=== PATIENT | female | born 1945 | race Caucasian/White ===

== ENCOUNTER 2022-02-24 09:41 | Observation (INO) ==
--- NOTE | 2022-01-29 08:45 | PAT Medication Instructions ---
Medication Instructions Date of Service January 29, 2022 Home Medications aspirin 325 mg tablet 325 mg PO QAM atenolol 50 mg tablet 50 mg PO QAM atorvastatin 20 mg tablet 20 mg PO QAM cholecalciferol (vitamin D3) 10 mcg (400 unit) capsule 1,000 unit PO QAM febuxostat 40 mg tablet (Uloric) 40 mg PO QAM levothyroxine 25 mcg tablet (Levoxyl) 37.5 mcg PO QAM lisinopril 30 mg tablet 30 mg PO QAM lorazepam 0.5 mg tablet 0.5 mg PO HS multivitamin 1 tab PO QAM albuterol sulfate 90 mcg/actuation aerosol inhaler 2 puff inhalation 6XD PRN cetirizine 10 mg capsule 10 mg PO DAILY PRN diphenhydramine HCl 25 mg capsule 25 mg PO HS ASK your prescriber and surgeon aspirin 325 mg tablet 325 mg PO QAM DO NOT take the morning of surgery cholecalciferol (vitamin D3) 10 mcg (400 unit) capsule 1,000 unit PO QAM lisinopril 30 mg tablet 30 mg PO QAM multivitamin 1 tab PO QAM cetirizine 10 mg capsule 10 mg PO DAILY PRN febuxostat 40 mg tablet (Uloric) 40 mg PO QAM Take morning of surgery With a small sip of water, OTHERWISE NOTHING TO EAT OR DRINK AFTER MIDNIGHT: atenolol 50 mg tablet 50 mg PO QAM atorvastatin 20 mg tablet 20 mg PO QAM levothyroxine 25 mcg tablet (Levoxyl) 37.5 mcg PO QAM albuterol sulfate 90 mcg/actuation aerosol inhaler 2 puff inhalation 6XD PRN(use if needed; please bring with you to hospital day of surgery if possible) Take evening before surgery lorazepam 0.5 mg tablet 0.5 mg PO HS albuterol sulfate 90 mcg/actuation aerosol inhaler 2 puff inhalation 6XD PRN(if needed) diphenhydramine HCl 25 mg capsule 25 mg PO HS Other Notes If you have any questions please call us at [phone] or [phone] or [phone] or [phone]
--- NOTE | 2022-02-03 12:05 | Anesthesiology Consultation ---
Date of Service February 03, 2022 Assessment & Plan (1) Encounter for pre-operative examination: - right arm restriction. - Outpatient joint assessment: Discussed with Dr. Arteaga. Patient is currently scheduled for inpatient pathway. If re-evaluated pending system levels during current pandemic/surgeon requests outpatient pathway, patient is acceptable candidate for outpatient joint program from anesthesia standpoint pending surgeon's office assessment of pt motivation/support/completion of same day joint program preop requirements. - COVID screening: Per assessment on 02/03/2022: Travel screen-[employer] 01/21/22 no known COVID-19 positive contacts or current COVID-19 related symptoms in past 2 weeks. Pt vaccinated. To surgeon's discretion if pt needs pre-op COVID testing. Chart Review Chart Review: Acceptable Risk for Surgery and Patient seen in Pre Admission Testing Teaching & Discussion Pre-Anesthesia Teaching/Discussion Notes: Instructed NPO after midnight before surgery, except medications with 15 cc of water. Medication instructions provided according to the PAT guidelines. History Surgery Operation Date: 02/24/22 07:00 Proposed Procedures p Right Lateral Total Hip Arthroplasty - Vitaly Osorio, Height/Weight Height: 5 ft 3 in Weight: 93.1 kg Allergies Allergy/AdvReac Type Severity Reaction Status Date / Time amoxicillin [From Augmentin] Allergy Intermediate Rash Verified 12/13/21 12:20 clavulanic acid Allergy Intermediate Rash Verified 12/13/21 12:20 [From Augmentin] levofloxacin [From Levaquin] Allergy Intermediate GI upset, Verified 01/30/22 12:01 hives allopurinol AdvReac Intermediate Kidney Verified 01/30/22 12:01 injury pseudoephedrine AdvReac Intermediate Heart Verified 01/30/22 12:03 racing Medications Home Medications Medication Instructions Recorded Confirmed Last Taken aspirin 325 mg tablet 325 mg PO QAM 10/28/21 12/13/21 Unknown atenolol 50 mg tablet 50 mg PO QAM 10/28/21 12/13/21 Unknown atorvastatin 20 mg tablet 20 mg PO QAM 10/28/21 12/13/21 Unknown cholecalciferol (vitamin D3) 10 1,000 unit PO QAM 10/28/21 12/13/21 Unknown mcg (400 unit) capsule febuxostat 40 mg tablet (Uloric) 40 mg PO QAM 10/28/21 12/13/21 Unknown levothyroxine 25 mcg tablet 37.5 mcg PO QAM 10/28/21 12/13/21 Unknown (Levoxyl) lisinopril 30 mg tablet 30 mg PO QAM 10/28/21 12/13/21 Unknown lorazepam 0.5 mg tablet 0.5 mg PO HS 10/28/21 12/13/21 Unknown multivitamin 1 tab PO QAM 10/28/21 12/13/21 Unknown albuterol sulfate 90 mcg/actuation 2 puff inhalation 6XD PRN Wheezing 12/13/21 12/13/21 Unknown aerosol inhaler cetirizine 10 mg capsule 10 mg PO DAILY PRN Allergy Symptoms 12/13/21 12/13/21 Unknown diphenhydramine HCl 25 mg capsule 25 mg PO HS 12/13/21 12/13/21 Unknown Past Medical History Medical History (Updated 02/03/22 @ 12:56 by Jessica Curtis PA-C) Anxiety Breast cancer, right R arm restriction Chronic back pain LBP GERD (gastroesophageal reflux disease) controlled, stable per pt; triggered by eating late Hyperlipidemia Hypertension controlled, stable per pt; white coat hypertension Hypothyroidism Limb alert care status Right arm Obesity Prediabetes monitoring by [facility] PCP, A1c 6.0% 08/2021 Seasonal allergies TIA (transient ischemic attack) suspected per pt -episode of memory loss, placed on ASA 325mg, no issues since Patient denies h/o seizures, heart attack, heart failure, blood clots or blood transfusions. Exercise / Class Metabolic Activity II 4-5 Yardwork/Stairs/Walk up hill (denies CP or SOB with 1 FOS, occ ambulates with walking stick outside d/t limping) Past Family History Family History Daughter Family history of reaction to anesthesia "AWARE" DURING ANESTHESIA Grandmother (Maternal) Family history of diabetes mellitus Mother Family history of diabetes mellitus Past Surgical History Surgical History (Updated 02/03/22 @ 12:20 by Jessica Curtis PA-C) History of cholecystectomy History of colonoscopy History of dilation and curettage History of esophagogastroduodenoscopy (EGD) Hx of lumpectomy RIGHT/CHEMOTHERAPY/RADIATION-right arm restriction Past Anesthesia History No Hx of Anesthesia Complications and Other (daughter slow to wake, hypertensive, denies re-intubation or extended stay, states was discharged home same day) History of PONV No Hx of PONV and No Hx of Motion Sickness Social History Smoking Status: Never smoker Do You Dip or Chew Tobacco: No Hx Alcohol Use: Yes Alcohol type: wine alcohol intake frequency: other (a few times per year) Hx Substance Use: No Review of Systems Mild snoring, denies witnessed apneas. Patient denies chest pain, shortness of breath, dyspnea on exertion, fever, chills, cough, wheezing, or palpitations. Physical Exam Vital Signs Vitals BP 149/76 P 73 TEMP 97.8 SP02 97% on RA RESP 18 Physical Full cervical extension range of motion without pain TMD 3.5 finger breadths Mallampati Score 2 Dentition: intact, Lungs: normal respiratory effort. Clear throughout to auscultation, no adventitious breath sounds Cardiac: regular rate and rhythm, no murmurs noted; posterior tibialis pulses 2+ equal Carotid arteries: negative bruit bilat Lab Results Anesthesia Preop Results Results Anesthesia Widget: WBC 7.11 K/ul (4.8-10.8) 02/03/22 Hgb 14.1 g/dl (12.0-16.0) 02/03/22 Hct 42.5 % (34.1-44.9) 02/03/22 Plt 214 K/uL (130-400) 02/03/22 Na 137 mmol/L (136-145) 02/03/22 K 4.4 mmol/L (3.5-5.1) 02/03/22 Cl 103 mmol/L (98-107) 02/03/22 CO2 28 mmol/L (21-32) 02/03/22 BUN 17 mg/dl (6-23) 02/03/22 Creat 0.99 mg/dl (0.6-1.2) 02/03/22 Glucose Level 135 mg/dl (70-99(Fasting)) H 02/03/22 PT 11.0 Seconds (9.0-12.0) 02/03/22 PTT 27.8 Seconds (21.0-31.0) 02/03/22 INR 1.0 (0.9-1.1) 02/03/22 Blood Type A Positive 02/03/22 Antibody Screen NEGATIVE 02/03/22 Testing Electrocardiogram Date: 02/03/22 NSR, rate 75 bpm Echocardiogram Date: 12/16/17 EF 55-59% No LV segmental wall motion abnormalities Mild mitral regurgitation Mild tricuspid regurgitation cLVH Other Testing Chest CT 11/25/21 1. Mild cardiomegaly without acute intrathoracic abnormality. 2. No pulmonary emboli. 3. No pleural effusion or airspace consolidation typical for pneumonia. 4. 3 mm solid nodule of the left lung apex.
[~2022-02-24 09:41] MED LIST: ACETAMINOPHEN 500 MG TAB PO SCH; BUPIVACAINE 0.5 % 5 MG/1 ML PF 10ML VIAL ONE; FAMOTIDINE 20 MG TAB PO SCH; GABAPENTIN 300 MG CAP PO SCH; LR 500ML BOLUS, THEN 15ML/HR IV SCH; LR 60ML/HR IV SCH; ORTHO JOINT MIX INFIL SCH; TRANEXAMIC ACID 1,000 MG **IV Intra-op IV SCH; TRANEXAMIC ACID 1,000 MG **IV Pre-op IV SCH; ceFAZolin 2000MG 2,000 MG/15 ML SYR IV SCH; dexAMETHasone 4 MG TAB PO SCH
--- NOTE | 2022-02-24 10:23 | History & Physical Bridge Note ---
Date of Service February 24, 2022 History & Physical Bridge Note I have examined the patient, reviewed the History & Physical and in the interval since the performance of the History & Physical I have noted the following changes of clinical significance: no changes noted
[2022-02-24] MEDS ORDERED: ORTHO JOINT ANESTHETIC ONE (10:53)
[2022-02-24] MEDS ORDERED: MIDAZOLAM HCL 1 MG/ML 2ML VIAL ONE (10:56)
[2022-02-24] MEDS ORDERED: fentaNYL citrate 100 MCG/2 ML VIAL ONE (10:56)
[2022-02-24] MEDS ORDERED: fentaNYL citrate 100 MCG/2 ML VIAL IV PRN (11:14)
[2022-02-24] MEDS ORDERED: ePHEDrine sulfate 50 MG/ML AMP IV PRN (11:14)
[2022-02-24] MEDS ORDERED: ONDANSETRON INJ 2 MG/ML 2 ML VIAL IV PRN ×2 (11:14→16:00)
[2022-02-24] MEDS ORDERED: ATROPINE SULFATE 0.1 MG/ML 10ML SYR IV PRN (11:14)
[2022-02-24] MEDS ORDERED: ONDANSETRON INJ 2 MG/ML 2 ML VIAL ONE (12:38)
[2022-02-24] MEDS ORDERED: PROPOFOL IV EMULSION 10 MG/ML 20 ML VIAL IV ONE (12:38)
[2022-02-24] MEDS ORDERED: ePHEDrine sulfate 50 MG/ML SYR ONE (12:38)
[2022-02-24] MEDS ORDERED: LIDOCAINE 2% MPF LOCAL 5 ML VIAL INFIL ONE (12:38)
--- NOTE | 2022-02-24 13:12 | XRay Report ---
XR hip RT 1V CLINICAL HISTORY: RT AP HIP TO BE DONE IN OR 3. Right hip prosthesis. COMPARISON STUDY: None. FINDINGS: 2 intraoperative AP images of the right hip were submitted for review. There is a right tot al hip arthroplasty. The hardware appears intact. No fracture or dislocation. No concerning radiopaqu e foreign bodies identified. IMPRESSION: Intraoperative study for a right total hip arthroplasty. No fracture or dislocation. ACT 112: Negative or not required by law. Electronically signed by: Sarthak Barr M.D. 02/24/2022 1:11 PM
--- NOTE | 2022-02-24 13:43 | Operative Report ---
PG Post Operative Report Pre & Post Diagnosis Operation Date: 02/24/22 12:30 Pre-Op Diagnosis: Degenerative joint disease right hip Post-Op Diagnosis: Degenerative joint disease right hip I identified the patient and participated in the time-out.: Yes Procedure Operation Date: 02/24/22 12:30 Actual Procedures p Right Lateral Total Hip Arthroplasty(Right) - Vitaly Osorio DO Surgeon Vitaly Osorio DO Rn Complex Care Vitaly Shore PA-C Estimated Blood Loss 250 Findings Consistent with Post-Op Diagnosis Specimens Right femoral head Description of Procedure Implants used I used a ZimmerBiomet total hip arthroplasty system with a size 2 standard offset Avenir Complete stem, a 46 mm G7 cup with a 25mm screw, an E1 polyeth ylene liner, a 32 mm ceramic head with a +3.5 neck. Arpit arrived at the hospital for the above procedure. She was seen in the preoperative holding area and the operative extremity was identified and signed. She was given a spinal anesthetic, a preoperative antibiotic, and TXA. She was then taken back to the operating room and laid on the table in the supine position. She was given basic sedation. She was then put in the right lateral decubitus position. A timeout was done and the patient and the operative extremity was properly identified. A lateral approach was used. Dissection was taken down through the fat layer to the fascia. The fascia was then incised. The anterior third of the abductors were then tenotomized off the greater trochanter. The capsule was then excised. The femoral head was then dislocated. The femoral neck was then resected. The femoral head was removed. The acetabulum was then exposed. Time was spent doing a circumferential or labral release. Sequential reaming up to a size 45 reamer was done. A final 46 mm Biomet G7 shell was then impacted into place. A single 25 mm screw was placed. The polyethylene liner for a 32 mm head was then impacted in the place. The surrounding soft tissues were then injected with 60 cc of an orthopedic pain control cocktail. The proximal femur was then exposed. Sequential broaching up to a size 2 broach was done. A standard neck and a +3.5 head was trialed. The hip was reduced. A flatplate image was taken. I was happy with the overall size of the implants and alignment of the hips. The hip was then dislocated. The trials were removed. The final size 2 standard offset Hugh Avenir complete stem was then impacted into place. A 32 mm head with a +3.5 neck was then impacted on the femoral stem. The hip was reduced. The hip was brought through a full range of motion and felt to be stable. The abductors were then tenodesed back to the greater trochanter with transosseous FiberWire sutures. The fascia was repaired with #1 Vicryl. Skin was closed with 2-0 Vicryl and garfield. She was then placed in a Silverlon dressing. She was then transferred to a hospital bed and taken to the postanesthesia care unit in stable condition. She tolerated the procedure well. Vitaly Shore PA-C, was present for the entire procedure. He was critical for patient positioning, prepping, draping, retraction exposure, wound closure and application of sterile dressing. I attest to the content of the Intraoperative Record and any orders documented therein. Any exceptions are noted below.
--- NOTE | 2022-02-24 14:24 | XRay Report ---
AP PELVIS, CROSSTABLE LATERAL RIGHT HIP History: Right total hip arthroplasty. Degenerative arthritis. Postop. FINDINGS: The patient is status post a right total hip arthroplasty. The hardware is intact. No fract ure or dislocation. Skin garfield are in place. IMPRESSION: Right total hip arthroplasty. No evidence for hardware complication ACT 112: Negative or not required by law. Electronically signed by: Sarthak Barr M.D. 02/24/2022 2:22 PM
--- NOTE | 2022-02-24 14:56 | Anesthesiology Progress Note ---
Date of Service February 24, 2022 Anesthesia Post Procedure Vital Signs Vital Signs: Temp Pulse Pulse Resp BP Pulse Ox O2 Del Method 02/24/22 14:45 36.4 C L 65 13 137/62 97 Room Air 02/24/22 14:35 74 14 124/66 98 Room Air 02/24/22 14:25 75 16 125/66 92 Room Air 02/24/22 14:15 72 15 126/56 L 97 Room Air 02/24/22 14:05 77 12 115/67 96 Room Air 02/24/22 13:55 36.4 C L 78 22 116/64 98 Room Air 02/24/22 10:27 36.5 C 73 20 168/81 H 97 Room Air Transfer of Care Handoff Completed per policy Notes Mental Status: alert / awake / arousable Patient Amnestic to Procedure: Yes Nausea / Vomiting: adequately controlled Pain: adequately controlled Airway Patency, RR, SpO2: stable & adequate BP & HR: stable & adequate Hydration State: stable & adequate Anesthetic Complications: no major complications apparent and Pt Satisfied with anesthetic care
[2022-02-24] MEDS ORDERED: ALBUTEROL HFA 8 GM INHALER INH PRN (16:00)
[2022-02-24] MEDS ORDERED: bisacodyL 10 MG SUPP PR PRN (16:00)
[2022-02-24] MEDS ORDERED: NALOXONE HCL 0.4 MG/1 ML VIAL/CARP IV PRN (16:00)
[2022-02-24] MEDS ORDERED: oxyCODONE HCL IR 5 MG TAB (IMMEDIATE RELEASE) PO PRN (16:00)
[2022-02-24] MEDS ORDERED: HYDROmorphone INJ 0.5 MG/0.5 ML SYR IV PRN (16:00)
[2022-02-24] MEDS ORDERED: METOCLOPRAMIDE HCL INJ 5 MG/ML 2 ML VIAL IV PRN (16:00)
[2022-02-24] MEDS ORDERED: MAGNESIUM HYDROXIDE SUSP 30 ML UDC PO PRN (16:00)
[2022-02-24] MEDS ORDERED: CETIRIZINE HCL 10 MG TABLET PO PRN (16:30)
[2022-02-24] MEDS: ACETAMINOPHEN 500 MG TAB PO SCH ×2 (18:48→22:20)
[2022-02-24] MEDS: KETOROLAC TROMETHAMINE 15 MG/ML VIAL IV SCH ×2 (18:48→22:21)
[2022-02-24] MEDS: SODIUM CHLORIDE 0.9% 1000ML 1,000 ML IV SCH (18:49)
[2022-02-24] MEDS: ceFAZolin 2000MG 2,000 MG/15 ML SYR IV SCH (19:49)
[2022-02-24] MEDS ORDERED: LORazepam 0.5 MG TAB PO SCH (21:00)
[2022-02-24] MEDS ORDERED: SENNA 8.6 MG TAB PO SCH (21:00)
[2022-02-24] MEDS: DOCUSATE SODIUM 100 MG CAP PO SCH (22:18)
[2022-02-24] MEDS: ASPIRIN 81 MG ECTAB PO SCH (22:19)
[2022-02-25] MEDS: KETOROLAC TROMETHAMINE 15 MG/ML VIAL IV SCH ×2 (03:44→10:50)
[2022-02-25] MEDS: ceFAZolin 2000MG 2,000 MG/15 ML SYR IV SCH (03:44)
[2022-02-25] MEDS: ACETAMINOPHEN 500 MG TAB PO SCH (05:41)
[2022-02-25] MEDS: SODIUM CHLORIDE 0.9% 1000ML 1,000 ML IV SCH (05:56)
[2022-02-25] MEDS ORDERED: LEVOTHYROXINE SODIUM 25 MCG TABLET PO SCH (06:30)
--- NOTE | 2022-02-25 07:01 | Orthopedic Progress Note ---
Date of Service February 25, 2022 Assessment & Plan (1) Status post right hip replacement: Overall she is doing very well. She is not having much pain in the right hip. She will be seen by physical therapy today for ambulation and range of motion exercises. She is on aspirin for DVT prophylaxis. She can be discharged home later today. She will follow-up with orthopedics in 2 weeks. Carlos Munson was seen and examined at bedside this morning. Overall she is doing very well. She is not having much pain in the right hip. She has been up and using the bathroom. She has no complaints.. Review of Systems All systems reviewed & are unremarkable except as noted in HPI & below. Physical Exam On physical examination of the right hip, the Silverlon dressing has been changed. Her leg lengths are equal. She has active dorsiflexion plantarflexion of her right ankle.. Results & Data Results & Data Laboratory Results . Diagnostic Findings Postoperative x-rays of the right hip show the prosthesis to be in anatomic alignment without any evidence of fracture, desiccation, or loosening. PG Care Time/CCT Total # of Minutes Spent Total Time Spent with Patient: Total time spent is greater than 50% in coordination of care (as documented) at patient's floor/unit and/or counseling patient: Coding Level of Care Code 75927 Post Operative Follow-Up Diagnoses Status post right hip replacement Z96.641
--- NOTE | 2022-02-25 07:02 | Discharge Summary ---
Date of Service February 25, 2022 Principal Diagnosis Same as "Discharge Diagnosis" noted below under Discharge Instructions. Discharge Exam On physical examination of the right hip, the Silverlon dressing has been changed. Her leg lengths are equal. She has active dorsiflexion plantarflexion of her right ankle.. Discharge Data Procedures Performed Operation Date: 02/24/22 12:30 Actual Procedures p Right Lateral Total Hip Arthroplasty(Right) - Vitaly Osorio DO Hospital Course (1) Status post right hip replacement: On February 25, 2022 Arpit arrived at [facility] and underwent a right hip replacement without complication. She had a spinal anesthetic. Postoperatively she was started on aspirin for DVT prophylaxis and transferred to the general orthopedic floors. Her hospital course was uneventful. On postop day #1, her vital signs were stable and her pain was well controlled. She was able to participate well with physical therapy doing ambulation and range of motion exercises. She was then discharged home. She will follow-up with orthopedics in 2 weeks. PG Care Time/CCT Total # of Minutes Spent Total Time Spent with Patient: Total time spent is greater than 50% in coordination of care (as documented) at patient's floor/unit and/or counseling patient: Discharge Plan Discharge Items Reason For Visit: DJD Right Discharge Diagnosis: Right hip replacement Activity: As commented below Call non-emergency contact if: your wound has increased redness and your wound has increased drainage Follow-up/Referrals: Fernando Orr MD [Primary Care Provider] - Addtl Attending Provider Instructions: Activity and Therapy Recommendations: * If you are using [facility] then therapy will be provided at your home until they feel you have accomplished all of your goals. * If you are using [facility] then Physical Therapy will be provided until they feel you are ready to start Outpatient Physical Therapy. * If you are not using home therapy then Outpatient Physical Therapy should start about 3-5 days from your day of surgery. Therapy will last about 6-10 weeks * You were shown a series of exercises in the hospital. Do these exercises three times each day including the exercises you were shown in physical therapy. * Get up and walk several times each day.~ For the first four weeks, try not to stand or walk for more than one hour at a time. If you do stand or walk for more than one hour, you will not hurt anything, but your leg will likely swell.~~ * As you feel comfortable, you may change from the walker or crutches to a cane and~then to independent walking. Medications: * Narcotic You will likely be sent home from the hospital with a prescription for the narcotic pain medication that worked best throughout your stay. * Aspirin Most patients will be required to take Aspirin 81mg twice a day for 6 weeks after surgery. This is obtained [id number] and a prescription is not necessary. * Other medications may be prescribed for specific circumstances. If you have any questions, please call the office at . * Resume previous home medications unless otherwise instructed TEDs/Elastic Stockings: The white elastic stockings help limit swelling and prevent blood clots from forming in your legs. The more you wear them, the more they work. Wear them for six weeks. Dressing Care: Leave the Silverlon dressing in place for 7 days. After 7 days you may remove the dressing. If the incision is not draining then you may leave the garfield open to air. If there is a little bit of drainage or if the garfield are getting stuck on your clothing then cover the incision with a dry dressing. The garfield will be removed at your 2 week follow-up appointment. Showering: You may shower with the Silverlon dressing in place. Do not let the shower spray hit the dressing directly. Pat the Silverlon dressing dry. If the dressing becomes wet underneath, then simply remove the dressing. Keep the incision dry until you are 7 days out from the day of surgery. After 7 days you may remove the Silverlon dressing and shower with the garfield exposed. Let soapy water run over the garfield and pat them dry. Do not scrub or soak the incision. Things To Watch For: * Drainage from the incision site that occurs more than one week after your surgery. * Increased redness at the incision site. * Fever above 102 degrees Fahrenheit. * Unusual chest pain or shortness of breath. * Call [facility] at with any of the above problems Follow-Up Visit: Follow-up with Dr. Osorio's PA (Vitaly Shore) 2-3 weeks after your day of surgery. He will remove your garfield and answer any questions. If you have any additional questions or concerns, Dr Osorio is usually in the office at the same time and will be available An appointment was probably scheduled when you signed-up for surgery in the office. If you have any questions call Office Instructions: More detailed instructions as well as Frequently Asked Questions were provided in a folder by our office when you signed-up for surgery. Please review these instructions when you get home. If you have any further questions or concerns, please feel free to call the office at [phone] Pending Studies at Discharge: No Stand-Alone Forms: My [facility] Medications and DC Order Prescriptions: No Action febuxostat [Uloric] 40 mg tablet 40 mg PO QAM levothyroxine [Levoxyl] 25 mcg tablet 37.5 mcg PO QAM lisinopril 30 mg tablet 30 mg PO QAM atenolol 50 mg tablet 50 mg PO QAM aspirin 325 mg tablet 325 mg PO QAM atorvastatin 20 mg tablet 20 mg PO QAM lorazepam [Ativan] 0.5 mg tablet 0.5 mg PO HS cholecalciferol (vitamin D3) 10 mcg (400 unit) capsule 1,000 unit PO QAM multivitamin Tablet 1 tab PO QAM diphenhydramine HCl [Benadryl] 25 mg Capsule 25 mg PO HS albuterol sulfate 90 mcg/actuation Hfa Aerosol Inhaler 2 puff INHALATION 6XD PRN (Reason: Wheezing) Zyrtec 10 mg Capsule 10 mg PO DAILY PRN (Reason: Allergy Symptoms) Admission Data Admit Date/Time: 02/24/22 13:56 Attending Provider: Vitaly Osorio Admit Provider: Vitaly Osorio Primary Care Provider: Fernando Orr
[2022-02-25] MEDS ORDERED: dexAMETHasone 4 MG TAB PO SCH (08:00)
[2022-02-25] MEDS: DOCUSATE SODIUM 100 MG CAP PO SCH (08:39)
[2022-02-25] MEDS: ASPIRIN 81 MG ECTAB PO SCH (08:39)
[2022-02-25] MEDS ORDERED: ATORVASTATIN 20 MG TAB PO SCH (09:00)
[2022-02-25] MEDS ORDERED: ATENOLOL 50 MG TABLET PO SCH (09:00)
[2022-02-25] MEDS ORDERED: lisinopril 10 MG TAB PO SCH (09:00)
[2022-02-25] MEDS ORDERED: MULTIVITAMIN TAB PO SCH (09:00)
== END 2022-02-25 13:41 | disposition home health service (06) ==
LOC: ASU 09:41 → PACUINP 09:41 → 3N 18:13